=== PATIENT | female | born 1935 | race Caucasian/White ===

== ENCOUNTER 2017-07-23 07:07 | Day surgery (SDC) | payer MEDICARE, OTHER ==
[~2017-07-23] VITALS: Ht 154.9 cm; Wt 68.2 kg
--- NOTE | ~2017-07-23 | HP ---
PATIENT: FRANKIE FERRERA MEDICAL RECORD: [id number] ACCOUNT: [id number] LOCATION:[facility] : 31 ADMISSION DATE: 07/23/17 HISTORY AND PHYSICAL EXAMINATION HISTORY OF PRESENT ILLNESS: The patient is to undergo surveillance upper endoscopy due to a history of multiple gastric polyps which have been bleeding and causing anemia in the past. A written history and physical examination is on the chart. TRANSINT:[id number] Voice Confirmation ID: [id number] DOCUMENT ID: [id number] SHAWNA CARY MD at 1518 CC: ASHTYN LINTON [id number] DICTATION DATE: 07/23/17 1208 BLOOD TYPER: 07/23/17 1227 [facility] 07/23/17 [id number] [place] [address]
--- NOTE | ~2017-07-23 | OP ---
PATIENT NAME: FRANKIE FERRERA MEDICAL RECORD: [id number] :31 LOCATION:D.OPS ADMISSION DATE: SURGEON: SHAWNA CARY MD DATE OF OPERATION: 07/23/2017 PREOPERATIVE DIAGNOSIS: History of multiple gastric polyps which have bled in the past causing anemia. POSTOPERATIVE DIAGNOSES: History of multiple gastric polyps which have bled in the past causing anemia with 42 new gastric polyps and also gastric antral vascular ectasias (GAVE). PROCEDURES: 1. Esophagogastroduodenoscopy with antral and distal esophageal biopsies. 2. Ablation of gastric antral vascular ectasias. 3. Ablation of 42 small gastric polyps. BACK SEAM STITCHER: None. BLOOD LOSS: Minimal. ANESTHESIA: General. COMPLICATIONS: None. The patient's hematocrit is borderline, but is still within normal limits today. She is to undergo surveillance upper endoscopy. The risks, possible complications, and alternatives to the procedure were discussed with the patient. She elects to proceed. ENDOSCOPIC COURSE: The patient was conveyed to the endoscopy suite electively on 07/23/2017. General anesthesia was induced by anesthesia staff. A bite block was inserted. A gastroscope was inserted into the mouth. It was advanced easily into the hypopharynx. The esophagus was easily intubated as were the stomach and duodenum. Upon withdrawal, retroflexed and angulus views were obtained. Antral biopsies were obtained. Distal esophageal biopsies were obtained. There was a mild case of gastric antral vascular ectasias and all the ectasias that I could identify were ablated with the argon plasma digital data analyst utilizing the esophageal setting in the forced mode. I identified multiple sessile polyps, several of these had a glanular appearance to them and may have been causing some bleeding. All 42 gastric polyps, which were all sessile, were ablated utilizing the argon plasma digital data analyst with the esophageal setting in the forced mode. TRANSINT:[id number] Voice Confirmation ID: [id number] DOCUMENT ID: [id number] SHAWNA CARY MD at 1518 CC: ASHTYN LINTON [id number] DICTATION DATE: 07/23/17 1210 DESIGN INSERTER: 07/23/17 1245 [facility] 07/23/17 [place] [address]
[~2017-07-23 07:07] MED LIST: BAYER CHEWABLE81 MG PO; DEXILANT60 MG PO; HYDROCHLOROTH12.5 M1 PO; LYRICA50 MG PO; NORVASC5 MG PO; PRAVACHOL20 MG PO; PREMARIN0.625 MG PO; SYNTHROID50 MCG PO; SYNTHROID75 MCG PO; VASOTEC20 MG PO
[2017-07-23 08:14] VITALS: BP 126/55; Ht 154.9 cm; Wt 68.2 kg
[2017-07-23 08:29] LABS: BASOPHILS 1.3 % (0-2); EOSINOPHILS 5.2 % (0-7); HEMATOCRIT 36.6 % (36.0-48.0); HEMOGLOBIN 12.2 g/dL (12-16); IMMATURE GRANULOCYTES 0.3 % (0-5); LYMPHOCYTES 25.5 % (15-50); MCH 30.4 pg (26.0-34.0); MCHC 33.3 g/dL (31.0-37.0); MCV 91.3 fL (80.0-100.0); MEAN PLATELET VOLUME 11.2 fL (7.4-10.4); MONOCYTES 8.4 % (2-11); NEUTROPHILS 59.3 % (40-80); PLATELET COUNT 186 10x3/uL (130-400); RBC 4.01 10x6/uL (4.00-5.40); RDW 14.3 % (11.5-14.5); WBC 3.1 10x3/uL (4.8-10.8)
[2017-07-23 08:42] LABS: ANION GAP 14.9 mmol/L (8-16); CALCIUM 8.9 mg/dL (8.5-10.1); CARBON DIOXIDE 25.3 mmol/L (21.0-32.0); CREATININE - SERUM 1.1 mg/dL (0.6-1.3); POTASSIUM - SERUM 4.2 mmol/L (3.5-5.1)
== END 2017-07-23 14:37 | disposition home or self-care (01) ==
LOC: D.OPS 07:07 → D.PAN 08:40 → D.OPS 08:40 → D.PAN 09:30 → D.OPS 11:30
PROVIDERS: Anesthesiology
DX: K31.7 Polyp of stomach and duodenum (principal); K31.819 Angiodysplasia of stomach and duodenum without bleeding; Z01.812 Encounter for preprocedural laboratory examination